=== PATIENT | female | born 1950 | race Caucasian/White ===

== ENCOUNTER 2021-03-06 22:59 | Emergency (ER) | payer SELFPAY ==
--- NOTE | 2021-03-07 03:15 | US ---
For Patients: As a result of the Century Cures Act, medical imaging exams and procedure reports are released immediately into your electronic medical record. You may view this report before your referring provider. If you have questions, please contact your health care provider. INDICATION: Left medial thigh pain for 1 week TECHNIQUE: Ultrasound venous duplex left lower extremity. Shook-scale, color Doppler, and spectral Doppler imaging were performed with compression and augmentation. COMPARISON: None FINDINGS: Deep veins: The left common femoral, femoral, popliteal, and visualized calf veins are fully compressible, demonstrate normal color flow, and normal response to mechanical augmentation. The Duplex Doppler waveforms are normal in appearance. Superficial veins: The visualized greater saphenous and superficial veins of the leg and calf are unremarkable. Soft tissue: No masses or cysts are identified. No adenopathy is seen. IMPRESSION: 1. No sonographic evidence of acute deep venous thrombosis seen. Dictated by: Shai Tillman MD @ 03/07/2021 03:13:44 (Electronically Signed)
--- NOTE | 2021-03-07 03:17 | CR ---
For Patients: As a result of the Century Cures Act, medical imaging exams and procedure reports are released immediately into your electronic medical record. You may view this report before your referring provider. If you have questions, please contact your health care provider. INDICATION: Groin pelvis pain TECHNIQUE: Pelvis radiograph 1 view COMPARISON: None FINDINGS: Moderate degradation of image quality noted due to body habitus. Bone: There is a suspected corticated fracture deformity along the parasymphyseal region of the left inferior pubic ramus. This region is difficult to assess due to overlying bowel gas. Moderate to severe diffuse osteopenia is present. Joint: The hip joints are unremarkable. The visualized sacroiliac joints are unremarkable in appearance. Soft tissue: Unremarkable. No radiopaque foreign bodies are seen. IMPRESSIONS: 1. No acute osseous injuries or abnormalities are noted. 2. There is a suspected corticated fracture deformity along the parasymphyseal region of the left inferior pubic ramus. This region is difficult to assess due to overlying bowel gas. Dictated by Shai Tillman MD @ 03/07/2021 3:15:26 AM Dictated by: Shai Tillman MD @ 03/07/2021 03:15:28 (Electronically Signed)
[2021-03-07] MEDS ORDERED: Ketorolac 15 MG/ML SDV IM ONE (03:26)
--- NOTE | 2021-03-07 04:27 | CT ---
For Patients: As a result of the Cures Act, medical imaging exams and procedure reports are released immediately into your electronic medical record. You may view this report before your referring provider. If you have questions, please contact your health care provider. INDICATION: Pelvic pain TECHNIQUE: CT pelvis without i.v. contrast. Coronal and sagittal reformats were obtained. COMPARISON: Radiograph 03/07/2021 FINDINGS: Bone: There is a comminuted, nondisplaced fracture present in the left parasymphyseal region. Bilateral sacral insufficiency fractures are present with slightly blurred margins. A nondisplaced fracture along the tip of the right L5 transverse process is seen. Joint: The hip joint is unremarkable. No significant hip effusion is seen. The visualized sacroiliac joints are unremarkable in appearance. The pubic symphysis is normal in appearance. Soft tissue: A pessary is noted within the vaginal vault. No significant soft tissue hematoma is identified. The visualized bowel gas pattern of the pelvis is unremarkable in appearance. No radiopaque foreign bodies are seen. IMPRESSIONS: 1. There is a comminuted, nondisplaced fracture present in the left parasymphyseal region. The appearance is suggestive of an acute injury. 2. Bilateral sacral insufficiency fractures are present with slightly blurred margins. These may represent subacute injuries. 3. A nondisplaced fracture along the tip of the right L5 transverse process is seen. Dictated by Shai Tillman MD @ 03/07/2021 4:25:39 AM Please note that all CT scans at this facility use dose modulation, iterative reconstruction, and/or weight-based dosing when appropriate to reduce radiation dose to as low as reasonably achievable. Dictated by: Shai Tillman MD @ 03/07/2021 04:26:11 (Electronically Signed)
--- NOTE | 2021-03-07 05:53 | EDM.PDOC ---
ED HPI GENERAL MEDICAL PROBLEM - General Chief Complaint: Lower Extremity Injury/Pain Stated Complaint: LT LEG GROIN PAIN Time Seen by Provider: 03/07/21 00:15 - History of Present Illness INITIAL COMMENTS - FREE TEXT/NARRATIVE: CHIEF COMPLAINT(S): "My leg hurts." HISTORY OF PRESENT ILLNESS: This is a 70-year-old woman without any significant past medical history except for hypertension who presents to the emergency department with my leg hurts. The patient states that her left leg hurts which she points to her hip and she states that it radiates to the medial point of her thigh/groin. She describes her pain as throbbing 9-10 out of 10. She denies any numbness or tingling. This all started suddenly. The daughter who is present states that they woke up and of your daily routine they have been giving ibuprofen and Tylenol scheduled have tried to use ice, creams, and heat without any relief. They deny any falls. The patient states that the pain is exacerbated by walking. She denies any bowel incontinence, urinary incontinence, decrease sensation when wiping. She denies any fevers or chills. She states that there is no relieving factor other than lying flat and not moving it. REVIEW OF SYSTEMS: Constitutional: Denies fever, chills. Eyes: Denies eye pain Ears, Nose, Mouth, & Throat: Denies earache Cardiovascular: Denies chest pain Respiratory: Denies shortness of breath Gastrointestinal: Denies Nausea, vomiting, diarrhea, hematochezia. Genitourinary: Denies hematuria Skin:Denies a rash MSK: Positive for left hip/groin pain Neurological: Denies blurred vision, numbness, tingling, weakness Psychiatric: Denies depression PAST MEDICAL HISTORY: As per history of present illness and as reviewed below otherwise noncontributory. SURGICAL HISTORY: As per history of present illness and as reviewed below otherwise noncontributory. SOCIAL HISTORY: As per history of present illness and as reviewed below otherwise noncontributory. FAMILY HISTORY: As per history of present illness and as reviewed below otherwise noncontributory. EXAMINATION OF ORGAN SYSTEMS/BODY AREAS: Constitutional: Blood pressure is 103/75, heart rate 77, respiratory rate 16 with an oxygen saturation 94% on room air. Temperature 36.8 General: Overall well-appearing elderly woman who is in no acute distress Psychiatric: Appropriate mood and affect. Eyes: No scleral icterus or conjunctival erythema ENMT: Moist mucous membranes. No pharyngeal erythema Cardiovascular: Regular, rate, and rhythm. No gallops, murmurs, or rubs. Bilateral upper extremity and lower extremity pulses symmetric and intact. No peripheral edema. No JVD. Respiratory: Lungs clear to auscultation bilaterally. No wheezes, rales, or rhonchi. Gastrointestinal: Soft, non-tender, non-distended. Normoactive bowel sounds Genitourinary: No suprapubic tenderness Musculoskeletal: Normal range of motion. Patient able to fully flex and extend her left hip and her right hip. There is some tenderness to palpation along the medial thigh, left hip area. There is no overlying skin changes no obvious swelling. There is no limb lengthening or discrepancy of the lower extremities. Skin: No lesions or abrasions. Neurological: Alert, GCS 15 distal sensation is intact MEDICAL DECISION MAKING AND COURSE IN THE ED WITH INTERPRETATION/REVIEW OF DIAGNOSTIC STUDIES: This is a 70-year-old woman with a past medical history of hypertension department with left hip/groin pain which radiates along the medial thigh. At this time differential does include DVT. Will obtain duplex lower extremity venous Doppler to evaluate. We will provide the patient with Toradol for pain relief. Given the patient's age we will also obtain a pelvic x-ray for further evaluation of any abnormality such as pelvic fracture. She is elderly and likely does have osteoporotic. Will reevaluate. I do not believe any other labs or imaging are indicated. The radiological images were viewed by myself along with reading the report from the radiologist. Left lower extremity duplex does not reveal any evidence of DVT. Pelvic x-ray reveals no acute osseous injuries or abnormalities. There is a suspected corticated fracture deformity along the parasymphyseal region of the left inferior pubic rami. This region is difficult to assess secondary to bowel gas I did discuss the results with patient and daughter at bedside. I did discuss that I would like to obtain a pelvic CT to further evaluate for any fracture. They were amenable to this plan. The radiological images were viewed by myself along with reading the report from the radiologist. Pelvic CT reveals a comminuted nondisplaced fracture present in the left parasymphyseal region. The appearance is suggestive of an acute fracture. There are bilateral sacral insufficiency fractures with slightly blurred margins. A nondisplaced fracture along the tip of the right L5 transverse process. After imaging I did contact Dr. Gonzalez regarding the parasymphyseal fracture. At this time all these fractures appear to be age-related compression factors. He did not recommend any surgical intervention. I did discuss with family regarding multiple fractures. I did discuss this is likely secondary to osteoporosis. I discussed that they need to take vitamin D and calcium. Also discussed that they should rest and limit movement that causes pain and follow-up with your primary care physician. I recommended that they get a DEXA scan as she has never had a DEXA scan to evaluate for bone density. I did discuss with daughter at bedside I would be giving her tramadol and it that needs to be used only as needed. She is to use Tylenol otherwise and the tramadol as needed. He was given strict return precautions. They were amenable discharge at this time and had no further questions DISPOSITION: The patient was discharged home in stable condition. The patient will follow up with primary care physician within 3 to 5 days, orthopedic as needed CONDITION: Fair PROCEDURES: None FINAL IMPRESSION(S)/DIAGNOSES: 1. Acute comminuted nondisplaced fracture in the left parasymphyseal region 2. Bilateral sacral insufficiency fractures 3. A nondisplaced fracture along the tip of the right L5 transverse process Mu Balbuena M.D. Left Groin Pain Score (Numeric/FACES): 7 - Related Data Allergies Allergy/AdvReac Type Severity Reaction Status Date / Time No Known Allergies Allergy Verified 03/07/21 00:23 Home Meds: Home Meds Fosinopril [Monopril] 100 mg PO DAILY 03/07/21 [History] Naloxone HCl [Narcan] 4 mg NS ONETIME #1 spray 03/07/21 [Rx] methocarbamoL [Methocarbamol] 750 mg PO QID #28 tablet 03/07/21 [Rx] traMADol HCl [Tramadol HCl] 50 mg PO Q6H PRN #12 tablet 03/07/21 [Rx] Past Medical History Cardiovascular History: Reports: Hypertension [employer] History: Reports: Musculoskeletal History: Reports: Arthritis - Infectious Disease History Infectious Disease History: Reports: Chicken Pox Social & Family History - Tobacco Use Tobacco Use Status *Q: Never Tobacco User Second Hand Smoke Exposure: No - Recreational Drug Use Recreational Drug Use: No Review of Systems - Review of Systems Review Of Systems: See Below ED EXAM, GENERAL - Physical Exam Exam: See Below Course - Vital Signs Last Recorded V/S: Last Vital Signs Temp 36.8 C 03/07/21 00:17 Pulse 72 03/07/21 06:17 Resp 16 03/07/21 06:17 BP 133/81 03/07/21 06:17 Pulse Ox 96 03/07/21 06:17 - Orders/Labs/Meds Meds: Medications Discontinued Medications Generic Name Dose Route Start Last Admin Trade Name Freq PRN Reason Stop Dose Admin Ketorolac Tromethamine 15 mg 03/07/21 03:26 03/07/21 04:05 Ketorolac 15 Mg/Ml Sdv IM 03/07/21 03:27 15 mg ONETIME ONE Administration Departure - Departure Time of Disposition: 05:52 Disposition: Home, Self-Care 01 Condition: Fair Clinical Impression: Insufficiency fracture, Fracture of transverse process of lumbar vertebra - Discharge Information *PRESCRIPTION DRUG MONITORING PROGRAM REVIEWED*: No *COPY OF PRESCRIPTION DRUG MONITORING REPORT IN PATIENT JONH: No Prescriptions: methocarbamoL [Methocarbamol] 750 mg PO QID #28 tablet Naloxone HCl [Narcan] 4 mg NS ONETIME #1 spray traMADol HCl [Tramadol HCl] 50 mg PO Q6H PRN #12 tablet PRN Reason: Pain (Severe 7-10) Instructions: Transverse Process Fracture, Stress Fracture Referrals: Rose Marie Beasley [Primary Care Provider] - Forms: ED Department Discharge Additional Instructions: Your evaluated today on an emergent basis. At this time you did have stress fractures of your pelvis and your lower spine. This is likely the cause of your pain. At this time I do recommend activity modification. This means that you should not do any activity that causes pain. I will prescribe you pain medications including Tylenol and TRamadol. I would like you to use Tylenol 500 to 1000 mg every 6 hours and then use the tramadol as needed for when you have increased pain. Do not continue to aggravate these fractures with movements that causes pain as they will not heal and cause further pain. I recommend that you ice the area 20 minutes 4 times a day. In addition I would like you to take daily calcium of 1500 mg and vitamin D 800 to 2000 international units. I would like you to keep your appointment with your primary care physician to obtain a DEXA scan. Please return if you have any worsening symptoms such as accidentally urinating on yourself, accidentally defecating on yourself, or decrease sensation when wiping after defecating. [facility] [address] [place] [address] [facility] [address] [place] [address] [facility] Professional Building [address] [facility], [address] [place] [address] The patient is informed of any results of their evaluation and diagnostic workup and all questions are answered. They are given discharge instructions and return precautions. The patient is stable for discharge. The patient states they understand and agree with the plan and that they will return if their symptoms get worse or if they have any new concerns. The following information is given to patients seen in the emergency department who are being discharged to home. This information is to outline your options for follow-up care. We provide all patients seen in our emergency department with a follow-up referral. The need for follow-up, as well as the timing and circumstances, are variable depending upon the specifics of your emergency department visit. If you don't have a primary care physician on staff, we will provide you with a referral. We always advise you to contact your personal physician following an emergency department visit to inform them of the circumstance of the visit and for follow-up with them and/or the need for any referrals to a consulting specialist. The emergency department will also refer you to a specialist when appropriate. This referral assures that you have the opportunity for follow-up care with a specialist. All of these measure are taken in an effort to provide you with optimal care, which includes your follow-up. Under all circumstances we always encourage you to contact your private physician who remains a resource for coordinating your care. When calling for follow-up care, please make the office aware that this follow-up is from your recent emergency room visit. If for any reason you are refused follow-up, please contact the [facility] Emergency Department at and asked to speak to the emergency department charge nurse. Sepsis Event Note (ED) - Evaluation Sepsis Screening Result: No Definite Risk
== END 2021-03-07 06:10 | disposition home or self-care (01) ==
LOC: MW.ED 22:59
DX: S32.059A Unspecified fracture of fifth lumbar vertebra, initial encounter for closed fracture (principal); I10 Essential (primary) hypertension; Z79.899 Other long term (current) drug therapy; X58.XXXA Exposure to other specified factors, initial encounter
CPT/HCPCS: 72170; 72192; 93971; 96372; 99284; J1885; 99283